=== PATIENT | male | born 1990 | race Asian ===

== ENCOUNTER 2017-12-19 22:27 | Emergency (ER) | payer OTHER ==
[~2017-12-19] VITALS: Ht 182.9 cm; Wt 125.2 kg
[2017-12-19 23:16] LABS: PLATELET COUNT 145 K/uL (142-355)
[2017-12-20 00:04] VITALS: BP 125/78; TEMP 97.8
== END 2017-12-20 00:06 | disposition home or self-care (01) ==
LOC: ED 22:27
DX: J02.0 Streptococcal pharyngitis (principal); T78.49XA Other allergy, initial encounter
CPT/HCPCS: 36415; 85027; 87804; 87880; 96374; 96375; 99284; J1100; J1200